=== PATIENT | female | born 1990 | race Caucasian/White ===

== ENCOUNTER 2021-09-27 02:19 | Inpatient (IN) ==
[2021-09-27] MEDS ORDERED: LACTATED RINGERS 1,000 ML IV ONE (02:57)
[2021-09-27] MEDS ORDERED: CARBOPROST TROMETHAMINE 250 MCG/ML AMP IM PRN (03:06)
[2021-09-27] MEDS ORDERED: TRANEXAMIC ACID 1,000 MG in SODIUM CHLORIDE 0.9% 100 ML IV PRN (03:06)
[2021-09-27] MEDS ORDERED: OXYTOCIN/LR 20 UNIT/1,000 ML BAG IV ONE ×2 (03:06→17:18)
[2021-09-27] MEDS ORDERED: ONDANSETRON 4 MG/2 ML VIAL IV PRN (03:06)
[2021-09-27] MEDS ORDERED: miSOPROStoL 200 MCG TABLET RECTAL PRN (03:06)
[2021-09-27] MEDS ORDERED: METHYLERGONOVINE 0.2 MG/1 ML AMP IM PRN (03:06)
[2021-09-27] MEDS ORDERED: BUTORPHANOL 2 MG/ML VIAL IV PRN (03:06)
[2021-09-27] MEDS ORDERED: MEPERIDINE 50 MG/1 ML VIAL IV PRN (03:06)
[2021-09-27] MEDS ORDERED: NALOXONE 0.4 MG/ML VIAL IV PRN (03:16)
[2021-09-27] MEDS ORDERED: diphenhydrAMINE 50 MG/1 ML VIAL IV PRN (03:16)
[2021-09-27] MEDS ORDERED: FAMOTIDINE 20 MG/2 ML VIAL IV ONE (03:16)
[2021-09-27] MEDS ORDERED: ePHEDrine 50 MG/ML VIAL IV PRN (03:16)
[2021-09-27] MEDS ORDERED: CITRIC ACID/SODIUM CITRATE 30 ML UDCUP PO ONE (03:16)
[2021-09-27 03:26] LABS: Basophils % 0.2 % (0.0-0.8); Eosinophils # 0.3 10*3/uL (0.0-0.87); Eosinophils % 3.4 % (0.00-10.9); Hematocrit 29.1 VOL% (35.7-47.0); Hemoglobin 9.8 GM/DL (12.0-16.0); Immature Granulocytes % 0.6 %; Immature Granulocytes Absolute 0.05 #; Lymphocytes # 2.2 10*3/uL (1.4-4.0); Mean Corpuscular HGB Conc 33.7 GM/DL (32-36); Mean Corpuscular Volume 87.9 FL (87-102); Neutrophils % 60.8 % (38.7-73.9); Platelet Count 182 T/CUMM (130-400); Red Blood Count 3.31 MC/CUMM (3.8-5.5); Red Cell Distribution Width 12.6 % (9.3-17.3); White Blood Count 8.1 T/CUMM (4-12)
[2021-09-27] MEDS ORDERED: fentaNYL 2 MCG/ROPIV 0.2% EPID 100 ML EPIDURAL SCH (03:30)
[2021-09-27] MEDS ORDERED: LACTATED RINGERS 1,000 ML IV SCH ×2 (03:30)
[2021-09-27 03:46] LABS: INR 0.9; PT Patient Result 9.9 SECS (10.5-12.0); Partial Thromboplastin Time 24.5 SECS (23.8-32.1)
[2021-09-27 03:47] LABS: Alanine Aminotransferase 26 U/L (13-56); Albumin 2.5 G/DL (3.4-5.0); Alkaline Phosphatase 152 U/L (45-117); Aspartate Amino Transferase 20 U/L (0-37); Bilirubin,Total < 0.39 MG/DL (0.20-1.00); Blood Urea Nitrogen 7 MG/DL (7-18); Calcium 8.1 MG/DL (8.5-10.1); Carbon Dioxide 23 MMOL/L (21-32); Estimated Glom Filtration Rate 128 ML/MIN; Glucose 87 MG/DL (74-106); Osmolality,Calculated 273.5 MOS/KG (273-304); Potassium 4.1 MMOL/L (3.5-5.1); Sodium 139 MMOL/L (136-145); Total Protein 6.3 G/DL (6.4-8.2)
[2021-09-27] MEDS ORDERED: NIFEdipine 10 MG CAPSULE PO ONE ×2 (04:00→15:12)
[2021-09-27 07:21] LABS: Hyaline Casts,Urine 1 /LPF (0-3); Mucus,Urine Occasional /LPF (Occasional); RBC,Urine 1 /HPF (0-4); Squamous Epithelial Cell,Urine Occasional /HPF (0-10); Urine Appearance Clear (Clear); Urine Color Yellow (Yellow)
[2021-09-27 07:22] LABS: Bilirubin,Urine Negative (Negative); Blood, Urine Trace mg/dL (Negative); Glucose,Urine (UA) Negative (Negative); Ketones,Urine Negative (Negative); Nitrite,Urine Negative (Negative); Protein,Urine >=300 mg/dL (Negative); Urine Specific Gravity 1.025 (1.001-1.035); Urine Urobilinogen 0.2 eU/dL (<2.0)
[2021-09-27 07:26] LABS: Protein/Creatinine Ratio,Urine 2.4 RATIO
[2021-09-27] MEDS ORDERED: OXYTOCIN/LR 30 UNIT/1,000 ML BAG IV ONE (11:02)
[2021-09-27 12:43] LABS: Cord Venous Blood HCO3 19.6 MMOL/L; Cord Venous Blood PCO2 48.9 MMHG; Cord Venous Blood PO2 26.8
[2021-09-27] MEDS ORDERED: IBUPROFEN 800 MG TABLET PO ONE (15:25)
[2021-09-27] MEDS ORDERED: DIPH/TET/ACEL PERT BOOSTER VACCINE 0.5 ML VIAL IM ONE (17:18)
[2021-09-27] MEDS ORDERED: RHO(D) IMMUNE GLOBULIN 300 MCG SYRINGE IM ONE (17:18)
[2021-09-27] MEDS ORDERED: BISACODYL 10 MG SUPP RECTAL PRN (17:18)
[2021-09-27] MEDS ORDERED: MEASLES/MUMPS/RUBELLA VACCINE 0.5 ML VIAL SUBCUT ONE (17:18)
[2021-09-27] MEDS ORDERED: LANOLIN 50% CREAM 0.3 OZ TUBE TOP PRN (17:18)
[2021-09-27] MEDS ORDERED: BENZOCAINE 20%/MENTHOL 0.5% SPRAY 56 GM CAN TOP PRN (17:18)
[2021-09-27] MEDS ORDERED: HYDROCORTISONE 2.5% RECTAL CREAM 30 GM TUBE TOP PRN (17:18)
[2021-09-27] MEDS ORDERED: oxyCODONE/ACETAMINOPHEN 5-325 MG TABLET PO PRN (17:18)
[2021-09-27] MEDS ORDERED: WITCH HAZEL PADS 100/JAR TOP PRN (17:18)
[2021-09-27] MEDS ORDERED: ACETAMINOPHEN 325 MG TABLET PO PRN (17:18)
[2021-09-27] MEDS: oxyCODONE/ACETAMINOPHEN 5-325 MG TABLET PO PRN (19:59)
[2021-09-27] MEDS: DOCUSATE SODIUM 100 MG CAPSULE PO SCH (21:30)
[2021-09-28 05:02] LABS: Basophils % 0.2 % (0.0-0.8); Eosinophils # 0.2 10*3/uL (0.0-0.87); Eosinophils % 1.8 % (0.00-10.9); Hematocrit 27.1 VOL% (35.7-47.0); Hemoglobin 8.8 GM/DL (12.0-16.0); Immature Granulocytes % 0.7 %; Immature Granulocytes Absolute 0.08 #; Lymphocytes # 2.3 10*3/uL (1.4-4.0); Lymphocytes % 20.6 % (21.3-54.2); Mean Corpuscular HGB Conc 32.5 GM/DL (32-36); Mean Platelet Volume 11.7 FL (9.6-12.0); Monocytes % 6.5 % (1.7-12.7); Neutrophils % 70.2 % (38.7-73.9); Platelet Count 191 T/CUMM (130-400); Red Blood Count 3.01 MC/CUMM (3.8-5.5); Red Cell Distribution Width 12.9 % (9.3-17.3); White Blood Count 11.3 T/CUMM (4-12)
[2021-09-28] MEDS: DOCUSATE SODIUM 100 MG CAPSULE PO SCH ×3 (08:09→21:27)
[2021-09-28] MEDS: IBUPROFEN 800 MG TABLET PO PRN (08:11)
[2021-09-28] MEDS: oxyCODONE/ACETAMINOPHEN 5-325 MG TABLET PO PRN (21:22)
[2021-09-29 07:14] VITALS: BP 134/77
[2021-09-29] MEDS: DOCUSATE SODIUM 100 MG CAPSULE PO SCH (08:42)
[2021-09-29] MEDS: IBUPROFEN 800 MG TABLET PO PRN (08:45)
== END 2021-09-29 13:15 | disposition home or self-care (01) | DRG 807 ==
LOC: N.LD 02:19 → INTOOBSV 02:19 → OBSVTOIN 02:19 → N.LD 03:17 → N.OB 17:54
PROVIDERS: ADMIT Obstetrics & Gynecology; ATTEND Obstetrics & Gynecology